=== PATIENT | male | born 1955 | race Caucasian/White ===

== ENCOUNTER 2025-05-18 11:34 | Day surgery (SDC) | payer BC ==
[~2025-05-18] VITALS: Ht 172.7 cm; Wt 88.6 kg
[~2025-05-18 11:34] MED LIST: CEFAZOLIN SODIUM 2 GM/20 ML SYR IV SCH; IBLOOD GLUCOSE TEST STRIP 1 EA TEST VI PRN; LACTATED RINGER'S 1,000 ML IV SCH; LIDOCAINE HCL 1% 5 ML SDV INJ ONE; MIDAZOLAM HCL 5 MG/5 ML VIAL IV PRN; fentaNYL citrate 100 MCG/2 ML VIAL IV PRN
[2025-05-18] MEDS ORDERED: MIDAZOLAM HCL 5 MG/5 ML VIAL ONE (11:58)
[2025-05-18] MEDS ORDERED: fentaNYL citrate 100 MCG/2 ML VIAL ONE (11:58)
[2025-05-18 12:02] VITALS: BP 131/76
[2025-05-18] MEDS ORDERED: FISH OIL 1,0001 EAC6 PO (12:07)
[2025-05-18] MEDS ORDERED: VAZALORE81 MG PO (12:08)
[2025-05-18] MEDS ORDERED: FAMOTIDINE40 MG PO (12:08)
[2025-05-18] MEDS ORDERED: REPATHA SU140 MG/1 M (12:09)
[2025-05-18] MEDS ORDERED: ALLERGY RELIEF10 M5 PO (12:11)
[2025-05-18] MEDS ORDERED: GUMMI BEAR MUL1 EACH PO (12:12)
--- NOTE | 2025-05-18 13:52 | NUR ---
05/18/25 1352 Ila Rodgers 1347: PT ARRIVES TO PACU AWAKE. 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 PT IMMEDIATELY BEGINS TO PASS GAS.
[2025-05-18 14:15] VITALS: BP 122/80
--- NOTE | 2025-05-19 11:33 | OR ---
[facility] [address], [place] [address] Signed DATE OF OPERATION: 05/18/2025 SURGEON: Buck Mendes MD PREOPERATIVE DIAGNOSES: 1. Positive Cologuard test. 2. Prior history of polyps, 2006. POSTOPERATIVE DIAGNOSES: Small polyp of cecum and right colon. PROCEDURE: Total colonoscopy to cecum with cold morcellation polypectomy x2. ANESTHESIA: Intravenous sedation, fentanyl 100 mcg, and Versed 5 mg. INDICATIONS: This 69-year-old white man is patient of Dr. Barger. He underwent Cologuard testing, which was found to be positive. He has had no problem of bleeding, diarrhea, or constipation and no family history of colon cancer. He did undergo colonoscopy by Dr. Carlos Baer in [place] in 2006 and was found to have two polyps he says. He does have a history of heart disease, for which he has undergone coronary stenting in 2007. He has no complaints of cardiovascular symptoms currently. He has had hip replacement as well in 2023. He is admitted at this time to undergo colonoscopy on the basis of his positive Cologuard test. He understands the risk of bleeding, infection, and perforation. FINDINGS: The prep was excellent. Complete colonoscopy was undertaken of the cecum. There was a very small and relatively flat polyp of the cecum, which was excised with cold morcellation technique. Another similar polyp was noted in the right colon. Remaining colon was normal. DESCRIPTION OF PROCEDURE: The patient was brought to the endoscopy suite and placed in lateral decubitus position, given intravenous sedation to the point of slurred speech and nystagmus. Preoperative antibiotic Ancef had been given based on hardware from joint replacement. Digital rectal examination was normal. Electronically Signed By: BUCK MENDES MD 05/19/25 1133 PATIENT NAME: GREY PRADO OPERATIVE REPORT DATE OF : 59 REPORT #: [id number] PHYSICIAN: BUCK MENDES MD PCP: SHAUNA BARGER MD REPORT IS CONFIDENTIAL AND NOT TO BE RELEASED WITHOUT AUTHORIZATION [facility] [address], [place] [address] Signed An Olympus video colonoscope was passed in the rectum and manipulated throughout the colon ultimately intubating the cecum itself. The ileocecal valve and appendiceal orifice were normal. Irrigation showed a very subtle, but real polyp of the cecum, which was excised with cold morcellation technique. Further withdrawal showed another similar such polyp in the right colon. It too was excised. Further withdrawal of scope and careful examination throughout showed no sign of other abnormality, certainly no other polyps and no diverticula or other problem. Retroflexed view was normal. The scope was removed. The patient was taken to the recovery room in good condition. CONCLUDING DIAGNOSIS: Polyps x2 concordant to positive Cologuard test. PLAN: Would recommend repeat colonoscopy in 10 years based on current clinical guidelines. He will return to the ongoing care of Dr. Barger otherwise. MD PATT Aguilar/TIMOTHY /[id number] cc: Dr. Barger Copies: ~ Electronically Signed By: BUCK MENDES MD 05/19/25 1133 PATIENT NAME: GREY PRADO OPERATIVE REPORT DATE OF : 59 REPORT #: [id number] PHYSICIAN: BUCK MENDES MD PCP: SHAUNA BARGER MD REPORT IS CONFIDENTIAL AND NOT TO BE RELEASED WITHOUT AUTHORIZATION
--- NOTE | 2025-05-20 17:24 | PATH ---
[facility] [address] [place] [place] [address] Signed SPECIMEN(S): A CECUM POLYP SPECIMEN(S): B ASCENDING POLYP SPECIMEN SOURCE: A. CECUM POLYP B. ASCENDING POLYP CLINICAL HISTORY: Positive Cologuard, history of polyps (2006) FINAL PATHOLOGIC DIAGNOSIS: A. Cecum polyp: - Tubular adenoma (multiple fragments). B. Ascending polyp: - Tubular adenoma (one fragment). [facility] MICROSCOPIC EXAMINATION: Histologic sections of all submitted blocks are examined by light microscopy. These findings, together with the gross examination, support the pathologic diagnosis. GROSS DESCRIPTION: A. The specimen, labeled and designated "Moe, cecum polyp," is received in formalin and consists of seven vickers soft tissue fragments, ranging from 0.1-0.3 cm. Entirely submitted in (A1). B. The specimen, labeled and designated "Moe, ascending polyp," is received in formalin and consists of four vickers soft tissue fragments, ranging from 0.2-0.3 cm. Entirely submitted in (B1). VB (under the direct supervision of a pathologist) The Gross Description was prepared using a voice recognition system. The report was reviewed for accuracy; however, sound-alike word errors, addition and/or deletions may occur. If there is any question about this report, please contact Client Services. ADDITIONAL NOTES: Immunohistochemical and/or in situ hybridization studies if performed in this case included appropriate positive controls that reacted as expected. This test was developed and its performance characteristics determined by [facility]. It has not been cleared or approved by the U.S. Food and Drug Administration. The FDA has determined that PATIENT NAME: GREY PRADO PATHOLOGY DATE OF : 59 REPORT #: [id number] PHYSICIAN: AYAD HORVATH PCP: SHAUNA BOUCHER MD REPORT IS CONFIDENTIAL AND NOT TO BE RELEASED WITHOUT AUTHORIZATION [place] [id number] [facility], [place] [address] Signed such clearance or approval is not necessary. This test is used for clinical purposes. It should not be regarded as investigational or for research. [facility] is certified under the Clinical Laboratory Improvement Amendments of 1988 (CLIA) as qualified to perform high complexity clinical laboratory testing. PERFORMING LABORATORY: Technical component was performed by [facility], [address] [place] [id number] (CLIA# [id number]). Professional interpretation was performed by [facility] [place] - [address] [place] [address] (CLIA#: [id number]). Diagnostician: Jerel Wade MD Pathologist Electronically Signed 05/20/2025 Copies: ~ PATIENT NAME: GREY PRADO PATHOLOGY DATE OF : 59 REPORT #: [id number] PHYSICIAN: AYAD PATHOLOGY PCP: SHAUNA BOUCHER MD REPORT IS CONFIDENTIAL AND NOT TO BE RELEASED WITHOUT AUTHORIZATION
== END 2025-05-18 14:25 | disposition home or self-care (01) ==
LOC: OPS 11:34 → DS 13:00 → OPS 14:25
PROVIDERS: ATTEND Surgery
PROC: 0DBF8ZX Excision of Right Large Intestine, Via Natural or Artificial Opening Endoscopic, Diagnostic (ICD-10-PCS; 2025-05-18)
PROC: 0DBH8ZX Excision of Cecum, Via Natural or Artificial Opening Endoscopic, Diagnostic (ICD-10-PCS; principal; 2025-05-18 13:00)
DX: Z12.11 Encounter for screening for malignant neoplasm of colon (principal); D12.0 Benign neoplasm of cecum; D12.2 Benign neoplasm of ascending colon; Z96.641 Presence of right artificial hip joint; Z88.8 Allergy status to other drugs, medicaments and biological substances
CPT/HCPCS: 99153; G0500; J0690; J2250; J3010; J7121